=== PATIENT | female | born 1965 | race Caucasian/White ===

== ENCOUNTER 2016-05-07 19:43 | Emergency (ER) | payer MEDICAID ==
[~2016-05-07] VITALS: Ht 152.4 cm; Wt 57.8 kg
[2016-05-07 19:50] VITALS: BP 141/78
[2016-05-07] MEDS ORDERED: HYDROmorphone 2 MG/ML (DILAUDID) 1 ML SYRINGE IM ONE (20:40)
[2016-05-07] MEDS ORDERED: ORPHENADRINE 60 MG/2 ML (NORFLEX) AMP IM ONE (20:40)
[2016-05-07] MEDS ORDERED: ED- HYDROcodone/ACETAMINOPHEN 5MG/325MG (NORCO) 6 TABLETS/BTL PO ONE (21:55)
== END 2016-05-07 22:21 | disposition home or self-care (01) ==
LOC: ED 19:45
DX: M54.5 Low back pain (principal)
CPT/HCPCS: 96372; 99282; A9270; J1170; J2360; 99283